=== PATIENT | female | born 1975 ===

== ENCOUNTER 2017-01-30 08:48 | Emergency (ER) | payer OTHER ==
[2017-01-30 08:56] VITALS: RESP 18
[2017-01-30] MEDS ORDERED: Sodium Chloride 0.9% 1,000 ML IV ONE (08:59)
[2017-01-30] MEDS ORDERED: Sodium Chloride 0.9% 1,000 ML ONE (09:05)
[2017-01-30 09:29] LABS: BASO % 0.1 % (0.0-2.0); EOS % 0.3 % (0.0-4.0); HEMATOCRIT 41.7 % (34.0-47.0); LYMPH # 1.6 K/uL (1.0-4.3); LYMPH % 19.4 % (20.0-40.0); MEAN PLATELET VOLUME 8.6 fL (7.2-11.7); MONO # 0.5 K/uL (0.0-0.8); MONO % 6.4 % (0.0-10.0); RED CELL DISTRIBUTION WIDTH 12.9 % (11.5-14.5); WHITE BLOOD COUNT 8.3 K/uL (4.8-10.8)
[2017-01-30 09:44] LABS: CHLORIDE 102 mmol/L (98-107)
[2017-01-30 09:45] LABS: POTASSIUM 3.5 mmol/L (3.6-5.2); SODIUM 139 mmol/L (132-148)
--- NOTE | 2017-01-30 09:46 | C.PDOC ---
History Of Present Illness 41 year old female presents to ED with complaints of lower abdominal cramping pain associated with vaginal bleeding since last night. Patient states she is 8 weeks , last menses 12/03/16. She reports she has been having brown spotting on and off for one month. She states she was seen at clinic few weeks ago and scheduled for Ultrasound in 2 weeks. She states she did not have pain prior and now bleeding is red and heavier. Time Seen by Provider: 01/30/17 08:59 Chief Complaint (Nursing): Female Genitourinary History Per: Patient History/Exam Limitations: no limitations Onset/Duration Of Symptoms: Days Current Symptoms Are (Timing): Still Present Abnormal Vaginal Bleeding: Yes Last Menstral Period: 12/03/16 : 3 Para: 2 (1 ) Past Medical History Reviewed: Historical Data, Nursing Documentation, Vital Signs Vital Signs: Last Vital Signs Temp 98.4 F 01/30/17 12:24 Pulse 68 01/30/17 12:24 Resp 18 01/30/17 12:24 BP 130/78 01/30/17 12:24 Pulse Ox 100 01/30/17 12:24 - Medical History PMH: No Chronic Diseases Surgical History: (1) Family History: States: No Known Family Hx - Social History Hx Alcohol Use: No Hx Substance Use: No Review Of Systems Constitutional: Negative for: Fever, Chills Respiratory: Negative for: Shortness of Breath Gastrointestinal: Positive for: Abdominal Pain. Negative for: Nausea, Vomiting Genitourinary: Positive for: Vaginal Bleeding. Negative for: Dysuria Musculoskeletal: Negative for: Back Pain Skin: Negative for: Rash Physical Exam - Physical Exam Appears: Well, Non-toxic, No Acute Distress Skin: Warm, Dry, No Rash Head: Atraumatic, Normacephalic Eye(s): bilateral: Normal Inspection Oral Mucosa: Moist Neck: Normal ROM Chest: Symmetrical Cardiovascular: Rhythm Regular, No Murmur Respiratory: Normal Breath Sounds, No Rales, No Rhonchi, No Wheezing Gastrointestinal/Abdominal: Bowel Sounds (Active), Soft, Tenderness (to lower abdomen and suprapubic area right>left), No Guarding Extremity: Bilateral: Atraumatic, Normal Color And Temperature, Normal ROM Neurological/Psych: Oriented x3, Normal Speech Gait: Steady ED Course And Treatment - Laboratory Results Result Diagrams: 01/30/17 09:24 01/30/17 09:24 Lab Interpretation: No Acute Changes O2 Sat by Pulse Oximetry: 99 (RA) Pulse Ox Interpretation: Normal - CT Scan/US US Other Rad Studies (CT/US): Read By Radiologist, Radiology Report Reviewed CT/US Interpretation: IMPRESSION: No evidence of intrauterine gestational sac. Thick heterogeneous central endometrial echo complex with mild increased vascularity which may represent retained products of conception in the appropriate clinical setting. No evidence of intrauterine gestation. Small amount of free fluid in the left adnexa. No evidence of adnexal mass. Medical Decision Making Medical Decision Making: Impression: female with pain and bleeding, rule out ectopic or miscarriage Plan: * Labs * US * Tylenol Progress, Reassess and Dispo: Labs reviewed US shows no IUP 1135 Spoke with OB vice president mission integration Dr Andrew who recommends follow up in the clinic within a week. Recommend analgesics for any pain Patient remained well in no distress. Discuss results of US and labs and empathize for loss. Patient verbalized understanding and is stable for discharge. Provide instructions in Slovak. Disposition Counseled Patient/Family Regarding: Diagnosis, Need For Followup, Rx Given - Disposition Referrals: [facility] [Outside] [facility] [Outside] Disposition: HOME/ ROUTINE Disposition Time: 11:35 Condition: STABLE Additional Instructions: Sly un seguimiento con la clnica o alonso obstetra / gineclogo para obtener ms evaluacin dentro de mike semana Yrn Tylenol o Advil para cualquier dolor Espere rubia y sangrado por algunos pride Vuelva al departamento de emergencia en cualquier momento si hay dolor o sangrado intenso ms de 2 pastillas por hora Instructions: Spontaneous Miscarriage (ED) Print Language: SINHALA - POA Present On Arrival: None - Clinical Impression Clinical Impression: Spontaneous - 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 - Scribe Statement The provider has reviewed the documentation as recorded by the Scribe Breana Austin All medical record entries made by the Scribe were at my direction and personally dictated by me. I have reviewed the chart and agree that the record accurately reflects my personal performance of the history, physical exam, medical decision making, and the department course for this patient. I have also personally directed, reviewed, and agree with the discharge instructions and disposition.
[2017-01-30 09:47] LABS: ALB/GLOB RATIO 1.2 (1.0-2.1); ALKALINE PHOSPHATASE 75 U/L (38-126); AST/SGOT 22 U/L (14-36); BILIRUBIN,TOTAL 0.7 mg/dL (0.2-1.3); CARBON DIOXIDE 25 mmol/L (22-30); GFR AFRICAN-AMERICAN > 60; TOTAL PROTEIN 7.5 g/dL (6.3-8.3)
[2017-01-30 09:48] LABS: ALT/SGPT 29 U/L (9-52); BLOOD UREA NITROGEN 9 mg/dL (7-17); CALCIUM 8.8 mg/dl (8.6-10.4); GLUCOSE,RANDOM 91 mg/dL (65-105)
[2017-01-30 10:40] LABS: RBC URINE 30086 /hpf (0-3)
[2017-01-30 10:41] LABS: URINE BILIRUBIN NEGATIVE (NEGATIVE); URINE COLOR Yellow (YELLOW); URINE GLUCOSE (UA) NORMAL (Normal); URINE KETONE TRACE mg/dL (NEGATIVE); URINE LEUKOCYTE ESTERASE NEG Leu/uL (Negative); URINE PROTEIN 2+ mg/dL (NEGATIVE); URINE UROBILINOGEN NORMAL mg/dL (0.2-1.0)
[2017-01-30 10:42] LABS: URINE BLOOD 3+ (NEGATIVE)
[2017-01-30] MEDS ORDERED: cefTRIAXone IV 1 gm in Dextros 50 ML IV ONE (11:18)
[2017-01-30] MEDS ORDERED: cefTRIAXone IV 1 gm in Dextros 50 ML IVPB ONE (11:22)
--- NOTE | 2017-01-30 11:25 | US ---
HISTORY: preg w. pain and bleeding, r.o ectopic, miscarriag COMPARISON: None available. TECHNIQUE: FINDINGS: UTERUS: Measures 12.5 x 5.3 x 6.8 cm. Anteverted, normal in size and appearance. No fibroid or other mass lesion seen. ENDOMETRIUM: Measures 17 mm in diameter. The central endometrial echo complex is thickened heterogeneous with mild increased vascularity. No evidence of intrauterine gestational sac. CERVIX: No cervical abnormality identified. RIGHT OVARY: Measures 2.7 x 1.7 x 2.2 cm. No solid mass. Normal flow. LEFT OVARY: Measures 3.1 x 1.8 2.4 cm. No solid mass. Normal flow. There is a 1.9 x 1.4 x 1.8 cm corpus luteum cyst. FREE FLUID: There is a small amount of free fluid in the left adnexa. OTHER FINDINGS: None. IMPRESSION: No evidence of intrauterine gestational sac. Thick heterogeneous central endometrial echo complex with mild increased vascularity which may represent retained products of conception in the appropriate clinical setting. No evidence of intrauterine gestation. Small amount of free fluid in the left adnexa. No evidence of adnexal mass.
[2017-01-30 12:25] VITALS: BP 130/78; PULSE 68; TEMP 98.4
[2017-01-30 13:43] VITALS: O2SAT 99
== END 2017-01-30 12:27 | disposition home or self-care (01) ==
LOC: C.ER 08:48
DX: O03.9 Complete or unspecified spontaneous abortion without complication (principal)
CPT/HCPCS: 76830; 76856; 80053; 81001; 84702; 84703; 85025; 87086; 87206; 96360; 99284; J0696; J7040